=== PATIENT | male | born 1990 ===

== ENCOUNTER 2017-09-30 11:21 | Emergency (ER) | payer OTHER ==
[2017-09-30 11:50] VITALS: BP 117/67; PULSE 104; RESP 16; TEMP 99; O2SAT 99
[2017-09-30] MEDS ORDERED: Sodium Chloride 0.9% 1,000 ML IV STA (13:10)
[2017-09-30 13:25] LABS: BASO % 0.4 % (0.0-2.0); EOS % 0.1 % (0.0-4.0); HEMOGLOBIN 16.9 g/dL (12.0-18.0); LYMPH # 0.6 K/uL (1.0-4.3); LYMPH % 4.5 % (20.0-40.0); MEAN CELL VOLUME 90.2 fl (80.0-94.0); MEAN CORPUSCULAR HEMOGLOBIN 31.8 pg (27.0-31.0); MEAN CORPUSCULAR HGB CONC 35.3 g/dL (33.0-37.0); MEAN PLATELET VOLUME 8.9 fl (7.2-11.7); MONO # 0.7 K/uL (0.0-0.8); MONO % 5.3 % (0.0-10.0); NEUT # 11.2 K/uL (1.8-7.0); NEUT % 89.7 % (50.0-75.0); NRBC % 0.2 % (0.0-0.0); PLATELET COUNT 228 K/uL (130-400); RED CELL DISTRIBUTION WIDTH 13.2 % (11.5-14.5); WHITE BLOOD COUNT 12.4 K/uL (4.8-10.8)
--- NOTE | 2017-09-30 13:37 | ED PDOC ---
HPI: Headache Time Seen by Provider: 09/30/17 12:00 Chief Complaint (Nursing): Headache Chief Complaint (Provider): Dizziness and Headache History Per: Patient History/Exam Limitations: no limitations Onset/Duration Of Symptoms: Days (1 day ago) Current Symptoms Are (Timing): Still Present Additional Complaint(s): 27 yo male presents to the Ed complaining of dizziness and headache, onset of 1 day ago. Patient states that yesterday he been experiencing headaches, he called them migraines, associated with nausea and reports that this was recurrent and has happened multiple times in the past. When he woke up this morning, he reported feeling dizzy, described more as a lightheadedness, prompting his visit to the ED. Of note, patient reports of having diarrhea ongoing from when he traveled to [place] 7 days ago. He denies any trouble walking, abdominal pain, fevers, syncope, or chest pains. Past Medical History Reviewed: Historical Data Vital Signs: Last Vital Signs Temp 99 F 09/30/17 11:45 Pulse 104 H 09/30/17 11:45 Resp 16 09/30/17 11:45 BP 117/67 09/30/17 11:45 Pulse Ox 99 09/30/17 11:45 - Medical History PMH: No Chronic Diseases - Surgical History Other surgeries: left eye surgery (cataract) - Family History Family History: States: Unknown Family Hx - Social History Current smoker - smoking cessation education provided: No Ex-Smoker (has not smoked in the last 12 months): No Alcohol: None Drugs: Denies - Immunization History Hx Tetanus Toxoid Vaccination: No Hx Influenza Vaccination: No Hx Pneumococcal Vaccination: No - Home Medications Home Medications: Ambulatory Orders Medication Instructions Recorded Ciprofloxacin HCl [Cipro] 500 mg PO BID #6 tablet 09/30/17 - Allergies Allergies/Adverse Reactions: Allergies Allergy/AdvReac Type Severity Reaction Status Date / Time No Known Allergies Allergy Verified 09/30/17 11:51 Review of Systems ROS Statement: Except As Marked, All Systems Reviewed And Found Negative Constitutional: Negative for: Fever Cardiovascular: Negative for: Chest Pain Gastrointestinal: Positive for: Nausea, Diarrhea (watery). Negative for: Vomiting, Abdominal Pain Neurological: Positive for: Headache (lightheadedness ), Dizziness. Negative for: Other (syncope) Physical Exam - Reviewed Nursing Documentation Reviewed: Yes Vital Signs Reviewed: Yes - Physical Exam Appears: Positive for: Well, Non-toxic, No Acute Distress. Negative for: Uncomfortable Head Exam: Positive for: ATRAUMATIC, NORMAL INSPECTION, NORMOCEPHALIC Skin: Positive for: Normal Color, Warm, DRY Eye Exam: Positive for: Normal appearance, EOMI, PERRL, Other (current left eye cataract) ENT: Positive for: Normal ENT Inspection Neck: Positive for: Normal, Painless ROM Cardiovascular/Chest: Positive for: Regular Rate, Rhythm. Negative for: Murmur Respiratory: Positive for: Normal Breath Sounds. Negative for: Respiratory Distress Gastrointestinal/Abdominal: Positive for: Normal Exam, Soft. Negative for: Tenderness Back: Positive for: Normal Inspection Extremity: Positive for: Normal ROM. Negative for: Pedal Edema, Deformity Neurologic/Psych: Positive for: Alert, Oriented. Negative for: Motor/Sensory Deficits - Laboratory Results Result Diagrams: 09/30/17 13:20 09/30/17 13:20 - ECG O2 Sat by Pulse Oximetry: 99 (RA) Pulse Ox Interpretation: Normal - Progress Re-evaluation Time: 15:16 Condition: Re-examined, Improved Medical Decision Making Medical Decision Making: Time: --13:08 Impression: --Headache and Dizziness with diarrhea Differential: --Recurrent Migraine/Headache vs Dehydration vs travelers diarrhea Plan: --EKG --Labs --Toradol 30mg IVP --Imodium 4mg PO --Metoclopramide 10mg IVP --IV fluids --IV Insertion Reassess -- Scribe Attestation: Documented by Enmanuel Li acting as a scribe for Ashwini Marquez MD. Provider Attestation: All medical record entries made by the Scribe were at my direction and personally dictated by me. I have reviewed the chart and agree that the record accurately reflects my personal performance of the history, physical exam, medical decision making, and the department course for this patient. I have also personally directed, reviewed, and agree with the discharge instructions and disposition. Disposition - Clinical Impression Clinical Impression: Acute diarrhea, Dizziness, Headache - Patient ED Disposition Is Patient to be Admitted: No Doctor Will See Patient In The: Office Counseled Patient/Family Regarding: Studies Performed, Diagnosis, Need For Followup - Disposition Referrals: [facility] [Outside] Romie Acosta MD [Staff Provider] - Disposition: Routine/Home Disposition Time: 15:17 Condition: GOOD Additional Instructions: Take excedrin for migraines. Follow up with your PCP in 2-3 days. Follow up with neurologist for headaches. Prescriptions: Ciprofloxacin HCl [Cipro] 500 mg PO BID #6 tablet Instructions: Migraine Headache (DC), Traveler's Diarrhea
[2017-09-30 14:06] LABS: BLOOD UREA NITROGEN 17 mg/dl (9-20); CALCIUM 9.9 mg/dL (8.4-10.2); GFR AFRICAN-AMERICAN > 60; GFR NON-AFRICAN AMERICAN > 60
[2017-09-30 14:52] LABS: BANDS 1 % (0-2); LYMPHOCYTE 4 % (20-50); MONOCYTE 9 % (0-10); NEUTROPHIL 86 % (42-75); PLATELET ESTIMATE NORMAL (NORMAL); TOTAL CELLS COUNTED 100
--- NOTE | 2017-10-01 12:11 | CARD ---
APPROVED REPORT EKG Measurement Heart [id number] <Conclusion> Normal sinus rhythm with sinus arrhythmia Possible Left atrial enlargement T wave abnormality, consider inferior ischemia Abnormal ECG
== END 2017-09-30 15:25 | disposition home or self-care (01) ==
LOC: H.ER 11:21
DX: R51 Headache (principal); R19.7 Diarrhea, unspecified
CPT/HCPCS: 80048; 82948; 85025; 93005; 96361; 96374; 96375; 99285; J1885; J2765; J7040